=== PATIENT | female | born 1985 | race Caucasian/White ===

== ENCOUNTER 2019-02-26 10:26 | Emergency (ER) | payer BC ==
[~2019-02-26] VITALS: Ht 162.6 cm; Wt 93.9 kg
== END 2019-02-26 15:12 | disposition home or self-care (01) ==
LOC: ER 10:26
DX: S93.691A Other sprain of right foot, initial encounter (principal); X50.0XXA Overexertion from strenuous movement or load, initial encounter; Y93.89 Activity, other specified; Y92.89 Other specified places as the place of occurrence of the external cause; Y99.8 Other external cause status